=== PATIENT | female | born 1970 | race Caucasian/White ===

== ENCOUNTER 2020-03-20 04:52 | Day surgery (SDC) | payer OTHER ==
[2020-03-19 19:28] VITALS: BMI 28.5
--- OUTSIDE RECORDS SUMMARY | 2020-03-20 04:56 | XMS ---
:1970 Author Organization [facility] Care Team Providers Name Role Phone ED STAFF PHYSICIANDEB Unavailable Unavailable Rich JEREZ MD Majed Unavailable [phone] Rich JEREZ MD Majed Unavailable [phone] Rich JEREZ MD Majed Unavailable [phone] Berry, Sam Unavailable Unavailable Berry, Sam Unavailable Unavailable Berry, Sam Unavailable Unavailable Berry, Sam Unavailable Unavailable Berry, Sam Unavailable Unavailable Berry, Sam Unavailable Unavailable ED STAFF PHYSICIAN, STAFF Unavailable Unavailable Dino Demarco MD Unavailable Unavailable Dino Demarco MD Unavailable Unavailable Dino Demarco MD Unavailable Unavailable Dino Demarco MD Unavailable Unavailable Angel, Kori Unavailable Unavailable Angel, Kori Unavailable Unavailable Angel, Kori Unavailable Unavailable Angel, Kori Unavailable Unavailable BERRY, SAM Unavailable Unavailable Re-disclosure Warning The records that you are about to access may contain information from federally- assisted alcohol or drug abuse programs. If such information is present, then the following federally mandated warning applies: This information has been disclosed to you from records protected by federal confidentiality rules (42 CFR part 2). The federal rules prohibit you from making any further disclosure of this information unless further disclosure is expressly permitted by the written consent of the person to whom it pertains or as otherwise permitted by 42 CFR part 2. A general authorization for the release of medical or other information is NOT sufficient for this purpose. The Federal rules restrict any use of the information to criminally investigate or prosecute any alcohol or drug abuse patient.The records that you are about to access may contain highly sensitive health information, the redisclosure of which is protected by Article 27-F of the [facility] Public Health law. If you continue you may haveaccess to information: Regarding HIV / AIDS; Provided by facilities licensed or operated by the [facility] Office of Mental Health; or Provided by the [facility] Office for People With Developmental Disabilities. If such information is present, then the following [facility] mandated warning applies: This information has been disclosed to you from confidential records which are protected by state law. State law prohibits you from making any further disclosure of this information without the specific written consent of the person to whom it pertains, or as otherwise permitted by law. Any unauthorized further disclosure in violation of state law may result in a fine or mcc sentence or both. A general authorization for the release of medical or other information is NOT sufficient authorization for further disclosure. Encounters Encounter Providers Location Date Indications Data Source(s ) Attender: MD Medrano 03/14/2020 (MEDGE N) Sim Villanueva MD 12:00:00 AM [facility] Office Emergency Attender: DEB ED STAFF 08/15/2019 08:36:00 AM [facility] PHYSICIANAttender: STAFF ED [facility] - 08/15/2019 [facility] STAFF PHYSICIANAdmitter: 01:34:00 PM EST DEB STAFF PHYSICIAN Patient discharged. Outpatient Attender: SAM Hernandez 08/11/2019 [facility] KRISTIAdmitter: SAM 01:49:00 PM [facility] VALDESReferrer: SAM BERRY Attender: Sam [facility] 08/11/2019 KAYLENE SR ([facility] 01:49:00 PM [facility] 08/11/2019 Center) 01:49:00 PM EST Emergency H 10/20/2018 Pk 08:35:00 AM EDT Medical C enter Outpatient Attender: Dino Hernandez 09/27/2018 [facility] MDAdmitter: Dino 08:40:00 AM EDT Med ical [place] MDReferrer: Dino Demarco MD Attender: Kori [facility] 02/07/2011 NEXTGEN ([facility] 02:39:00 PM EDT - [facility] 02/07/2011 [place]) 02:39:00 PM EDT Medications Medication Brand Start Product Dose Route Administrative Pharmacy [facility] Indications Reaction Description Data Name Date Form Instructions Instructions Source(s) Amlodipine AMLODI 03/14/ TABLET 30 complet AMLOD IPINE (MEDGEN) 2.5 MG Oral PINE:3 2019 ed Elvira rn Tablet 16024 12:00: [place] AMLODIPINE: 00 AM r [id number] EDT Nephrology [facility] BLOOD complet BLOOD (MEDGEN) PRESSURE 2019 ed PRESSURE KIT Shantell thern KIT DEVICE: 12:00: DEVICE [place] 00 AM r EDT [facility] tramadol TRAMAD 02/21/ TABLET 14 complet TRAMADO L (MEDGEN) hydrochlori OL:835 2019 ed Elvira rn de 50 MG 603 12:00: [place] e Oral Tablet 00 AM r TRAMADOL:83 EDT [facility] Acetaminoph TYLENO 08/11/ TABLET 16 complet TYLE NOL WITH (MEDGEN) en 300 MG / L WITH 2018 ed CODEINE #3 [place] Codeine CODEIN 12:00: [place] Phosphate E 00 AM r 30 MG Oral #3:993 EST Nephrol ogy Tablet 837 [facility] [Tylenol with Codeine] TYLENOL WITH CODEINE #[id number] Lorazepam 1 LORaze 1 complet Richie nt MG Oral arabella 1 ed Pk Tablet mg Medical LORazepam 1 Tablet Center mg Tablet, , Ordered By: Noemí hughes By: Daily Lopes MDDirection P s: 1 tablet Tinsay oral every , six hours MDDire PRN anxiety ctions : 1 tablet oral every six hours PRN anxiet y Prednisone predni 2 complet [place]ome[place] t 20 MG Oral SONE ed Pk Tablet 20 mg Medical predniSONE Tablet Center 20 mg , Tablet, Orderradames Ordered By: ellen By: Deb Mujica, mary ellen MDDirection Guan[place], s: 2 tablet MDDire oral daily ctions : 2 tablet oral daily methylPREDN 1 complet [facility] ISolone 4 ed Pk mg Medical tablets,dos Center e pack, Ordered By: Nancy Kingsley s: 1 tablet oral daily Naproxen naprox 1 complet [facility] 500 MG Oral en 500 ed Stephen s Tablet mg Medical naproxen Tablet Center 500 mg , Tablet, Ordere Ordered By: d By: radames Beattyirection Phi s: 1 tablet , oral twice MDDire a day PRN ctions pain : 1 tablet oral twice a day PRN pain Diazepam 5 diazep 1 complet [place] t MG Oral am 5 ed Pk Tablet mg Medical diazepam 5 Tablet Center mg Tablet, , Ordered By: Noemí De Souza d By: Bessy Yip MDDirection e s: 1 tablet [place] oral three , times a day MDDire ctions : 1 tablet oral three times a day Cyclobenzap cyclob 1 complet Richie nt rine enzapr ed Pk hydrochlori ine 10 Medica l de 10 MG mg Center Oral Tablet Tablet cyclobenzap , rine 10 mg Ordere Tablet, d By: Ordered By: Gu[place] Ball MDDirection MDDire s: 1 tablet ctions oral three : 1 times a day tablet PRN oral pain-modera three te times a day PRN pain-m oderat e Naproxen naprox 1 complet [place] 500 MG Oral en 500 ed Stephen s Tablet mg Medical naproxen Tablet Center 500 mg , Tablet, Ordere Ordered By: d By: mary ellen Dashirection Garyo, s: 1 tablet MDDire oral twice ctions a day PRN : 1 pain tablet oral twice a day PRN pain Insurance Providers Payer name Policy type / Policy ID Covered Covered green party's Policy Plan Coverage type green party ID relationship to Dimas Information dimas UMR [id number] SP [id number] UMR [id number] 1 [id number] UMR [id number] SP [id number] O UMR O [id number] 01 [id number] O Problems, Conditions, and Diagnoses Code Display Name Description Problem Type Effective Data Sour ce(s) Dates N17.9 Acute kidney ACUTE KIDNEY Problem 03/14/2020 (MEDGEN) failure, FAILURE, 12:00:00 AM [facility] unspecified UNSPECIFIED EDT [facility] F17.210 Nicotine NICOTINE Diagnosis 08/15/2019 [facility] [place] dependence, DEPENDENCE, 08:36:[address] cigarettes, CIGARETTES, EST uncomplicated UNCOMPLICATED R07.89 Other chest pain OTHER CHEST PAIN Diagnosis 08/15/2019 [facility] int Pk 08:36:00 AM [facility] Cent[facility] r EST R06.00 Dyspnea, DYSPNEA, Diagnosis 08/15/2019 [facility] [place] unspecified UNSPECIFIED 08:36:[address] EST R10.11 Right upper RIGHT UPPER Diagnosis 08/11/2019 [facility] [place] [facility] quadrant pain QUADRANT PAIN 01:49:00 PM Medical Center EST M62.838 Other muscle spasm OTHER MUSCLE SPASM Diagnosis 9 [facility] Pk 08:35:00 AM Medical Cente r EDT M54.2 Cervicalgia CERVICALGIA Diagnosis 10/20/2018 [facility] 08:35:00 AM [facility] Cent[facility] r EDT Surgeries/Procedures Procedure Description Date Indications Data Source(s) Documentation of current 03/14/2020 (ME DGEN) [facility] medications (procedure) 12:00:00 AM EDT [facility] Nephrology [facility] Documentation of current 03/14/2020 (ME DGEN) [facility] medications (procedure) 12:00:00 AM EDT [facility] Documentation of current 03/14/2020 (ME DGEN) [facility] medications (procedure) 12:00:00 AM EDT [facility]ph[facility] OFFICE OUTPATIENT VISIT 03/14/2020 (MED GEN) [facility] 15 MINUTES 12:00:00 AM EDT [facility] COLLECTION VENOUS BLOOD 03/14/2020 (MED GEN) [facility] VENIPUNCTURE 12:00:00 AM EDT [facility] Results ID Date Data Source [id number] 03/08/2020 12:00:00 AM EDT (MEDGEN) Viki moffett [facility] Name Value Range Interpretation Description Data Source(s ) Supporting Code Document(s ) Hemoglobin A1c 5.9 % of Above high normal (MEDGEN ) in Blood total [facility] Hgb [facility] ID Date Data Source [id number] 03/08/2020 12:00:00 AM EDT (MEDGEN) [facility] Name Value Range Interpretation Description Data Source(s ) Supporting Code Document(s ) GLOMERULAR <1.0 Normal [facility] BASEMENT non-numeric [facility]ANE results) [facility] ANTIBODY (IGG) [facility] ID Date Data Source [id number] 03/08/2020 12:00:00 AM EDT [facility] Name Value Range Interpretation Description Data Source(s ) Supporting Code Document(s ) TSH 3.07 mIU/L Normal (applies to (MEDGEN) W/REFLEX non-numeric [facility] TO FT4 results) [facility] ID Date Data Source [id number] 03/08/2020 12:00:00 AM EDT ([facility]) [facility] Name Value Range Interpretation Description Data Source(s ) Supporting Code Document(s ) KAPPA 54.1 mg/L Above high normal [facility] LIGHT [place] CHAIN, [facility] FREE, [facility] SERUM LAMBDA 50.1 mg/L Above high normal ([facility]) LIGHT [place] CHAIN, [facility] FREE, [facility] SERUM KAPPA/KAY 1.08 Normal ([facility] DA LIGHT non-numeric [facility] CHAINS results) [facility] RATIO, SERUM ID Date Data Source [id number] 03/08/2020 12:00:00 AM EDT ([facility]) [facility] Name Value Range Interpretation Description Data Source(s ) Supporting Code Document(s ) DNA (DS) <1 Normal ([facility] ANTIBODY non-numeric [facility] results) [facility] ID Date Data Source [id number] 03/08/2020 12:00:00 AM EDT [facility] Name Value Range Interpretation Code Description Data Shantell rce(s) Supporting Document(s ) ANTONIO NEGATIVE Normal (applies to (MEDGEN) SCREEN, non-numeric [facility] IFA results) [facility] ID Date Data Source [id number] 03/08/2020 12:00:00 AM EDT ([facility]) [facility] Name Value Range Interpretation Description Data Source(s ) Supporting Code Document(s ) SHORTY * Normal (applies (MEDGEN) INTERPRETATION to non-numeric [facility] results) [facility] ID Date Data Source [id number] 03/08/2020 12:00:00 AM EDT (MEDGEN) Viki moffett [facility] Name Value Range Interpretation Description Data Sup porting Code Source(s) Document(s ) Color of DARK Normal (applies (MEDGEN) Peritoneal YELLOW to non-numeric [facility] dialysis fluid results) [facility] Appearance of CLOUDY Abnormal (MEDGEN) Abdomen (applies to [facility] non-numeric [facility] results) [facility] Specific 1.017 Normal (applies (MEDGEN) gravity of to non-numeric [facility] Pericardial results) [facility] fluid by [facility] Refractometry [facility] pH of Lower 5.5 Normal (applies (MEDGEN) respiratory to non-numeric [facility] specimen results) [facility] Glucose NEGATIVE Normal (applies (MEDGEN) [Mass/volume] to non-numeric [facility] in Urine results) [facility] collected for Nephrology unspecified PLL duration Bilirubin NEGATIVE Normal (applies (MEDGEN) [Presence] in to non-numeric [facility] Peritoneal results) [facility] fluid [facility] PLL Ketones NEGATIVE Normal (applies (MEDGEN) [Presence] in to non-numeric [facility] Blood by Tablet results) [facility] OCCULT BLOOD Abnormal (MEDGEN) (applies to [facility] non-numeric [facility] results) [facility] Protein Abnormal (MEDGEN) [Mass/volume] (applies to [facility] in Lower non-numeric [facility] respiratory results) [facility]ph[facility] specimen PLLC Leukocyte Abnormal (MEDGEN) esterase (applies to [facility] [Presence] in non-numeric [facility] Body fluid by results) [facility] Automated test PLLC strip Nitrite NEGATIVE Normal (applies (MEDGEN) [Presence] in to non-numeric [facility] Urine by Test results) [facility] strip [facility] RBC 40-60 Abnormal (MEDGEN) (applies to [facility] non-[facility] results) [facility] WBC 10-20 Abnormal (MEDGEN) (applies to [facility] non-numeric [facility] results) [facility] SQUAMOUS 6-10 Abnormal (MEDGEN) EPITHELIAL (applies to [facility] CELLS non-numeric [facility] results) [facility] Bacteria NONE SEEN Normal (applies (MEDGEN) [Presence] in to non-numeric [facility] Prostatic fluid results) [facility] by Light Nephrology microscopy PLL HYALINE CAST 0-1 Abnormal (MEDGEN) (applies to [facility] non-numeric [facility] results) [facility] ID Date Data Source [id number] 03/08/2020 12:00:00 AM EDT (MEDGEN) Viki moffett [facility] Name Value Range Interpretation Description Data Source(s ) Supporting Code Document(s ) Glucose 128 Above high normal (MEDGEN) [Mass/volume] mg/dL [place] in Urine [facility] collected for Nephrology unspecified PLL duration UREA NITROGEN 26 mg/dL Above high normal (MEDGEN) (BUN) [facility] Creatinine 1.50 Above high normal (MEDGEN) [Interpretation mg/dL [facility] ] in Urine [facility] eGFR NON-AFR. 40 Below low normal (MEDGEN) HAITIAN mL/min/1 [facility] .73m2 [facility] BUN/CREATININE 17 Normal (applies (MEDGEN) RATIO (calc) to non-numeric [facility] results) [facility] eGFR 46 Below low normal (MEDGEN) HAITIAN mL/min/1 [facility] .73m2 [facility] Sodium 140 Normal (applies (MEDGEN) [Moles/volume] mmol/L to non-numeric [facility] in Serum, results) [facility] Plasma or Blood [facility] Potassium 3.8 Normal (applies (MEDGEN) [Mass/volume] mmol/L to non-numeric [facility] in Blood results) [facility] Carbon dioxide 23 Normal (applies (MEDGEN) [VFr/PPres] in mmol/L to non-numeric [facility] Gas delivery results) [facility] system [facility] PLL Chloride 104 Normal (applies (MEDGEN) [Moles/volume] mmol/L to non-numeric [facility] in Serum, results) [facility] Plasma or Blood [facility] Calcium 9.5 Normal (applies (MEDGEN) [Moles/volume] mg/dL to non-numeric [facility] in Urine results) [facility] collected for Nephrology unspecified PLL duration PROTEIN, TOTAL 7.4 g/dL Normal (applies (MEDGEN) to non-numeric [facility] results) [facility] Microalbumin 4.3 g/dL Normal (applies (MEDGEN) [Mass/time] in to non-numeric [facility] Urine collected results) [facility] for unspecified Nephrology duration PLLC ALBUMIN/GLOBULI 1.4 Normal (applies (MEDGEN) N RATIO (calc) to non-numeric [facility] results) [facility] Globulin 3.1 g/dL Normal (applies (MEDGEN) [Mass/time] in (calc) to non-numeric [facility] 24 hour Urine results) [facility] Alkaline 70 U/L Normal (applies (MEDGEN) phosphatase to non-numeric [facility] [Enzymatic results) [facility] activity/volume Nephrology ] in Serum, PLLC Plasma or Blood BILIRUBIN, 0.5 Normal (applies (MEDGEN) TOTAL mg/dL to non-numeric [facility] results) [facility] AST 32 U/L Normal (applies (MEDGEN) to non-numeric [facility] results) [facility] ALT 48 U/L Above high normal (MEDGEN) [facility] ID Date Data Source [id number] 03/08/2020 12:00:00 AM EDT (MEDGEN) [facility] Name Value Range Interpretation Description Data Source(s ) Supporting Code Document(s ) URIC ACID 7.9 mg/dL Above high normal (MEDGEN) [facility] ID Date Data Source [id number] 03/08/2020 12:00:00 AM EDT (MEDGEN) [facility] Name Value Range Interpretation Description Data Source(s ) Supporting Code Document(s ) PHOSPHATE ( 3.8 mg/dL Normal (applies (MEDGEN) PHOSPHORUS) to non-numeric [facility] results) [facility] ID Date Data Source [id number] 03/08/2020 12:00:00 AM EDT (MEDGEN) [facility] Name Value Range Interpretation Description Data Source(s ) Supporting Code Document(s ) Magnesium 1.7 Normal (applies (MEDGEN) [Mass/volume] mg/dL to non-numeric [facility] in Urine results) [facility] collected for Nephrology unspecified PLLC duration ID Date Data Source [id number] 03/08/2020 12:00:00 AM EDT (MEDGEN) [facility] Name Value Range Interpretation Code Description Data Shantell rce(s) Supporting Document(s ) P ANCA >1:640 Above high normal (MEDGEN) TITER [facility] ID Date Data Source [id number] 03/08/2020 12:00:00 AM EDT (MEDGEN) [facility] Name Value Range Interpretation Description Data Sup porting Code Source(s) Document(s ) MYELOPEROXIDASE 367.0 Above high (MEDGEN) ANTIBODY AI normal [facility] ANCA SCREEN P-ANCA Abnormal (MEDGEN) POS (applies to [facility] non-numeric [facility] results) [facility] PROTEINASE-3 <1.0 Normal (applies (MEDGEN) ANTIBODY to non-numeric [facility] results) [facility] ID Date Data Source [id number] 03/08/2020 12:00:00 AM EDT (MEDGEN) [facility] Name Value Range Interpretation Description Data Source(s ) Supporting Code Document(s ) HEPATITIS A NON-REACT Normal (applies (MEDGEN) IGM EULA to non-numeric [facility] results) [facility] HEPATITIS B NON-REACT Normal (applies (MEDGEN) CORE ANTIBODY EULA to non-numeric [facility] (IGM) results) [facility] HEPATITIS B NON-REACT Normal (applies (MEDGEN) SURFACE EULA to non-numeric [facility] ANTIGEN results) [facility] HEPATITIS C NON-REACT Normal (applies (MEDGEN) ANTIBODY EULA to non-numeric [facility] results) [facility] SIGNAL TO 0.02 Normal (applies (MEDGEN) CUT-OFF to non-numeric [facility] results) [facility] ID Date Data Source [id number] 03/08/2020 12:00:00 AM EDT (MEDGEN) [facility] Name Value Range Interpretation Description Data Sup porting Code Source(s) Document(s ) CREATININE, RANDOM 142 Normal (applies (MEDG EN) URINE mg/dL to non-numeric [facility] results) [facility] PROTEIN/CREATININE 0.894 Above high (MEDGEN) RATIO mg/mg normal [facility] PROTEIN/CREATININE 894 Above high (MEDGEN) RATIO mg/g normal [facility] PROTEIN, TOTAL, RANDOM 127 Above high (MEDGE N) UR mg/dL normal [facility] Microalbumin 59 % Normal (applies (MEDGEN) [Mass/time] in Urine to non-numeric [place] collected for results) [facility] unspecified duration Nephrolog y PLL [id number] 0 % Normal (applies (MEDGE N) to non-numeric [facility] results) [facility] [id number] 11 % Normal (applies (MEDGE N) to non-numeric [facility] results) [facility] GAMMA GLOBULINS 16 % Normal (applies (MEDGEN) to non-numeric [facility] results) [facility] BETA GLOBULINS 14 % Normal (applies (MEDGEN) to non-numeric [facility] results) [facility] ABNORMAL PROTEIN BAND 2.2 Above high (MEDGEN ) 1 mg/dL normal [facility] Immunoelectrophoresis Normal (applies (M EDGEN) for 24 hour Urine to non-numeric [place] results) [facility] ID Date Data Source [id number] 03/08/2020 12:00:00 AM EDT (MEDGEN) [place] [facility] Name Value Range Interpretation Description Data Source(s ) Supporting Code Document(s ) ALBUMIN, 47.3 Normal (applies to (MEDGEN) URINE mg/dL non-numeric [facility] results) [facility] CREATININE 142 mg/dL Normal (applies to (MEDGEN) , RANDOM non-numeric [facility] URINE results) [facility] ALBUMIN/CR 333 Above high normal (MEDGEN) EATININE mcg/mg [facility] RATIO, creat [facility] URINE ID Date Data Source [id number] 03/08/2020 12:00:00 AM EDT (MEDGEN) [place] [facility] Name Value Range Interpretation Description Data Sup porting Code Source(s) Document(s ) PROTEIN, TOTAL 7.4 Normal (applies (MEDGEN) g/dL to non-numeric [facility] results) [facility] Alpha 1 globulin 0.3 Normal (applies (MEDGEN ) [Mass/volume] by g/dL to non-numeric [facility] Electrophoresis in results) [facility] Urine collected for Nephrology unspecified duration PLLC Microalbumin 4.0 Normal (applies (MEDGEN) [Mass/time] in Urine g/dL to non-numeric [place] collected for results) [facility] unspecified duration Nephrolog y PLLC Beta 1 globulin 0.4 Normal (applies (MEDGEN) [Mass/volume] by g/dL to non-numeric [facility] Electrophoresis in results) [facility] Urine collected for Nephrology unspecified duration PLLC Alpha 2 globulin 1.0 Above high (MEDGEN) [Mass/volume] by g/dL normal [facility] Electrophoresis in [facility] Urine collected for Nephrology unspecified duration PLLC Gamma globulin 1.2 Normal (applies (MEDGEN) [Mass/volume] by g/dL to non-numeric [facility] Electrophoresis in results) [facility] Urine collected for Nephrology unspecified duration PLLC Beta 2 globulin 0.4 Normal (applies (MEDGEN) [Mass/volume] in g/dL to non-numeric [facility] Cerebral spinal fluid results) [facility] by Electrophoresis Nephrology [facility] Immunoelectrophoresis Normal (applies (Estelita CARLISLE) for 24 hour Urine to non-numeric [place] results) [facility] ID Date Data Source [id number] 02/27/2020 05:12:00 AM EDT [facility] Name Value Range Interpretation Description Data Sup porting Code Source(s) Document(s ) SARS [facility] coronavirus 2 RNA This lab was ordered by [facility] and reported by [facility]. ID Date Data Source [id number] 12/07/2019 12:00:00 AM EDT (MEDGEN) [place] [facility] [facility] Name Value Range Interpretation Code Description Data Shantell rce(s) Supporting Document(s ) SARS CoV NEGATIVE Normal (applies to (MEDGEN) 2 AB IGG non-numeric [facility] results) [facility] ID Date Data Source Coagulation 08/15/2019 11:45:00 AM [facility] Rout.[id number] EST Name Value Range Interpretation Code Description Data Shantell rce(s) Supporting Document(s ) UNK < 500 <content [facility] styleCode="Bold"> Medical Cent er D-Dimer </content>359 ngFEU<content styleCode="Italic s"> (< 500 ngFEU)</content> ID Date Data Source CardiacMarkers.[id number] 08/15/2019 11:45:00 AM EST [facility] -0500 Name Value Range Interpretation Description Data Sup porting Code Source(s) Document(s ) Troponin < 0.034 <content [facility] I.cardiac styleCode="Bold Pk [Mass/volume ">Troponin I Medical ] in Serum </content>< Center or Plasma 0.012 NG/ML<content styleCode="Ital ics"> (< 0.034 NG/ML)</content > ID Date Data Source Liver 08/15/2019 09:32:00 AM EST [facility] Profile.[id number] Name Value Range Interpretation Description Data Sup porting Code Source(s) Document(s ) Aspartate 14-36 <content [facility] aminotransferase styleCode="Bold"> [place] hs [Enzymatic Aspartate Medical activity/volume] Aminotransferase Center in Serum or Plasma (AST) </content>29 IU/L<content styleCode="Italic s"> (14-36 IU/L)</content> Alanine 7-30 Above high <content [facility] aminotransferase normal styleCode="Bold"> [place] hs [Enzymatic Alanine Medical activity/volume] Aminotransferase Center in Serum or Plasma (ALT) </content>33 IU/L H<content styleCode="Italic s"> (7-30 IU/L)</content> Bilirubin.total 0.2-1.3 <content [facility] [Mass/volume] in styleCode="Bold"> [place] hs Serum or Plasma Bilirubin Total Medical </content>0.2 Center MG/DL<content styleCode="Italic s"> (0.2-1.3 MG/DL)</content> Alkaline 38-126 <content [facility] phosphatase styleCode="Bold"> Pk [Enzymatic Alkaline Medical activity/volume] Phosphatase (ALP) Cente r in Serum or Plasma </content>49 IU/L<content styleCode="Italic s"> (38-126 IU/L)</content> Albumin 3.5-5.0 <content [facility] [Mass/volume] in styleCode="Bold"> [place] hs Serum or Plasma Albumin Medical </content>3.6 Center G/DL<content styleCode="Italic s"> (3.5-5.0 G/DL)</content> ID Date Data Source HematologyRou.[id number] 08/15/2019 09:32:00 AM [facility]EN [facility] 0500 Name Value Range Interpretation Description Data Sup porting Code Source(s) Document(s ) Leukocytes 4.4-11.0 <content [facility] [#/volume] in styleCode="Bold Pk Blood by ">White Blood Medical Automated count Cell Count Center </content>5.72 KCUMM<content styleCode="Ital ics"> (4.4-11.0 KCUMM)</content > Erythrocytes 4.0-5.1 <content [facility] [#/volume] in styleCode="Bold Pk Blood by ">Red Blood Medical Automated count Cell Count Center </content>4.18 MCUMM<content styleCode="Ital ics"> (4.0-5.1 MCUMM)</content > Hemoglobin 12.3-16. Below low normal <content [facility] [Mass/volume] in 0 styleCode="Bold Pk Blood ">Hemoglobin Medical </content>11.9 Center G/DL L<content styleCode="Ital ics"> (12.3-16.0 G/DL)</content> Hematocrit 36.0-46. <content [facility] [Volume 0 styleCode="Bold [facility] Fraction] of ">Hematocrit Medical Blood by </content>36.8 Center Automated count %<content styleCode="Ital ics"> (36.0-46.0 %)</content> Erythrocyte 11.5-14. <content [facility] distribution 5 styleCode="Bold Pk width [Ratio] by ">Red Cell Medical Automated count Distribution Center Width </content>14.3 %<content styleCode="Ital ics"> (11.5-14.5 %)</content> Erythrocyte mean 26.0-34. <content [facility] corpuscular 0 styleCode="Bold Pk hemoglobin ">Mean Medical [Entitic mass] Corposcular Center by Automated Hemoglobin count </content>28.5 PG<content styleCode="Ital ics"> (26.0-34.0 PG)</content> Erythrocyte mean 32.0-37. <content [facility] corpuscular 0 styleCode="Bold Pk hemoglobin ">Mean Corpus. Medical concentration Hgb Center [Mass/volume] by Concentration Automated count (MCHC) </content>32.3 G/DL<content styleCode="Ital ics"> (32.0-37.0 G/DL)</content> Platelets 130-400 <content [facility] [#/volume] in styleCode="Bold Pk Blood by ">Platelet Medical Automated count Count Center </content>254 KCUMM<content styleCode="Ital ics"> (130-400 KCUMM)</content > Erythrocyte mean 80.0-100 <content [facility] corpuscular .0 styleCode="Bold Pk volume [Entitic ">Mean Medical volume] by Corpuscular Center Automated count Volume </content>88.0 FL<content styleCode="Ital ics"> (80.0-100.0 FL)</content> Platelet mean 8.0-11.0 <content [facility] volume [Entitic styleCode="Bold Pk volume] in Blood ">Mean Platelet Medical by Automated Volume Center count </content>10.5 FL<content styleCode="Ital ics"> (8.0-11.0 FL)</content> UNK 0.0 <content [facility] styleCode="Bold Pk ">Nucleated Red Medical Blood Cell Center Count </content>0.00 KCUMM<content styleCode="Ital ics"> (0.0 KCUMM)</content > UNK 0 <content [facility] styleCode="Bold Pk ">Nucleated Red Medical Blood Cell Center </content>0.0 /100<content styleCode="Ital ics"> (0 /100)</content> ID Date Data Source GFR(Creatinine).[id number] 08/15/2019 09:32:00 AM RAVEN [facility] 0-0500 Name Value Range Interpretation Code Description Data Shantell rce(s) Supporting Document(s ) UNK > 60 <content [facility] styleCode="Bold"> Medical Cent er EGFR </content>80 GFR<content styleCode="Italic s"> (> 60 GFR)</content> ID Date Data Source CHMROUTINECCDA.[id number] 08/15/2019 09:32:00 AM RAVEN [facility] -0500 Name Value Range Interpretation Description Data Sup porting Code Source(s) Document(s ) UNK 2.3-3.5 <content [facility] styleCode="Bold Medical ">Globulin Center </content>3.1 G/DL<content styleCode="Ital ics"> (2.3-3.5 G/DL)</content> Protein 6.3-8.2 <content [facility] Kp [Mass/volum styleCode="Bold Medical e] in Serum ">Total Protein Center or Plasma </content>6.7 G/DL<content styleCode="Ital ics"> (6.3-8.2 G/DL)</content> UNK >= 1.0 <content [facility] styleCode="Bold Medical ">AG Ratio Center </content>1.2 <content styleCode="Ital ics"> (>= 1.0 )</content> ID Date Data Source [facility].[id number] 08/15/2019 09:32:00 AM EST [facility] Name Value Range Interpretation Description Data Sup porting Code Source(s) Document(s ) Sodium 137-145 <content [facility] [Moles/volume] in styleCode="Bold"> Dino phs Serum or Plasma Sodium Medical </content>138 Center MEQ/L<content styleCode="Italic s"> (137-145 MEQ/L)</content> Creatinine 0.5-1.3 <content [facility] [Mass/volume] in styleCode="Bold"> [place] hs Serum or Plasma Creatinine Medical </content>0.8 Center MG/DL<content styleCode="Italic s"> (0.5-1.3 MG/DL)</content> Carbon dioxide, 22-30 <content [facility] total styleCode="Bold"> Pk [Moles/volume] in Carbon Dioxide Medical Serum or Plasma </content>25 Center MEQ/L<content styleCode="Italic s"> (22-30 MEQ/L)</content> Potassium 3.5-5.3 <content [facility] [Moles/volume] in styleCode="Bold"> Dino phs Serum or Plasma Potassium Medical </content>4.2 Center MEQ/L<content styleCode="Italic s"> (3.5-5.3 MEQ/L)</content> UNK 7-17 Above high <content [facility] normal styleCode="Bold"> Pk BUN </content>19 Medical MG/DL H<content Center styleCode="Italic s"> (7-17 MG/DL)</content> Chloride 98-107 <content [facility] [Moles/volume] in styleCode="Bold"> Dino phs Serum or Plasma Chloride Medical </content>106 Center MEQ/L<content styleCode="Italic s"> (98-107 MEQ/L)</content> Alanine 7-30 Above high <content [facility] aminotransferase normal styleCode="Bold"> [place] hs [Enzymatic Alanine Medical activity/volume] Aminotransferase Center in Serum or Plasma (ALT) </content>33 IU/L H<content styleCode="Italic s"> (7-30 IU/L)</content> Glucose 74-106 <content [facility] [Mass/volume] in styleCode="Bold"> [place] hs Serum or Plasma Glucose Medical </content>99 Center MG/DL<content styleCode="Italic s"> (74-106 MG/DL)</content> UNK > 60 <content [facility] styleCode="Bold"> Pk EGFR </content>80 Medical GFR<content Center styleCode="Italic s"> (> 60 GFR)</content> Aspartate 14-36 <content [facility] aminotransferase styleCode="Bold"> [place] hs [Enzymatic Aspartate Medical activity/volume] Aminotransferase Center in Serum or Plasma (AST) </content>29 IU/L<content styleCode="Italic s"> (14-36 IU/L)</content> Calcium 8.4-10. <content [facility] [Mass/volume] in 2 styleCode="Bold"> [place] hs Serum or Plasma Calcium Medical </content>9.6 Center MG/DL<content styleCode="Italic s"> (8.4-10.2 MG/DL)</content> Bilirubin.total 0.2-1.3 <content [facility] [Mass/volume] in styleCode="Bold"> [place] hs Serum or Plasma Bilirubin Total Medical </content>0.2 Center MG/DL<content styleCode="Italic s"> (0.2-1.3 MG/DL)</content> Alkaline 38-126 <content [facility] phosphatase styleCode="Bold"> Pk [Enzymatic Alkaline Medical activity/volume] Phosphatase (ALP) Cente r in Serum or Plasma </content>49 IU/L<content styleCode="Italic s"> (38-126 IU/L)</content> Albumin 3.5-5.0 <content [facility] [Mass/volume] in styleCode="Bold"> [place] hs Serum or Plasma Albumin Medical </content>3.6 Center G/DL<content styleCode="Italic s"> (3.5-5.0 G/DL)</content> ID Date Data Source [id number] 10/29/2018 12:00:00 AM EDT (MEDGEN) [facility] Name Value Range Interpretation Code Description Data Shantell rce(s) Supporting Document(s ) CULTURE,UR FINAL Normal (applies to (MEDGEN) INE,ROUTIN non-numeric [facility] E results) [facility] CULTURE,UR Normal (applies to (MEDGEN) INE,ROUTIN non-numeric [facility] E results) [facility] Date Data Source [id number] 10/29/2018 12:00:00 AM [facility] Name Value Range Interpretation Description Data Sup porting Code Source(s) Document(s ) CTRACHOMATIS Normal (applies (MEDGEN) RNA,TMA,UROG to non-numeric [facility] results) [facility] Repair of TEST NOT Normal (applies (MEDGEN) tongue PERFORMED to non-numeric [facility] (procedure) results) [facility] ID Date Data Source [id number] 10/29/2018 12:00:00 AM [facility] Name Value Range Interpretation Description Data Sup porting Code Source(s) Document(s ) Appearance of Cloudy Abnormal (MEDGEN) Abdomen (applies to [facility] non-numeric [facility]) [facility] Color of Yellow Normal (applies (MEDGEN) Peritoneal to non-numeric [facility] dialysis fluid results) [facility] Specific 1.015 Normal (applies (MEDGEN) gravity of to non-numeric [facility] Pericardial results) [facility] fluid by [facility] pH of Lower 6.5 Normal (applies (MEDGEN) respiratory to non-numeric [facility] specimen results) [facility] Bilirubin Negative Normal (applies (MEDGEN) [Presence] in to non-numeric [facility] Peritoneal results) [facility] Glucose Negative Normal (applies (MEDGEN) [Mass/volume] to non-numeric [facility] in Urine results) [facility] collected for [facility] duration Ketones Negative Normal (applies (MEDGEN) [Presence] in to non-numeric [facility] Blood by Tablet results) [facility] OCCULT BLOOD Abnormal (MEDGEN) (applies to [facility] non-numeric [facility] results) [facility] Nitrite Negative Normal (applies (MEDGEN) [Presence] in to non-numeric [facility] Urine by Test results) [facility] strip [facility] Protein Abnormal (MEDGEN) [Mass/volume] (applies to [facility] in Lower non-numeric [facility] respiratory results) [facility] specimen [facility] Leukocyte Abnormal (MEDGEN) esterase (applies to [facility] [Presence] in non-numeric [facility] Body fluid by results) [facility] Automated test [facility] strip WBC 40-60 Above high (MEDGEN) normal [facility] RBC > or =60 Above high (MEDGEN) normal [facility] SQUAMOUS 0-5 Normal (applies (MEDGEN) EPITHELIAL to non-numeric [facility] CELLS results) [facility] Bacteria None Seen Normal (applies (MEDGEN) [Presence] in to non-numeric [facility] Prostatic fluid results) [facility] by Light [facility] microscopy [facility] HYALINE CAST None Seen Normal (applies (MEDGEN) to non-numeric [facility] results) [facility] ID Date Data Source CardiacMarkers 07/16/2018 12:10:00 PM EST [facility] Name Value Range Interpretation Code Description Data Shantell rce(s) Supporting Document(s ) UNK 0-0.034 <content [facility] styleCode="Bold" Medical Cente r >Troponin 4HR </content>< 0.012 NG/ML<content styleCode="Itali cs"> (0-0.034 NG/ML)</content> ID Date Data Source Coagulation Rout 07/16/2018 11:20:00 AM [facility] Name Value Range Interpretation Code Description Data Shantell rce(s) Supporting Document(s ) UNK < 500 <content [facility] styleCode="Bold"> Medical Cent er D-Dimer </content>237 ngFEU<content styleCode="Italic s"> (< 500 ngFEU)</content> ID Date Data Source BloodBank 07/16/2018 08:25:00 AM [facility] Name Value Range Interpretation Code Description Data Shantell rce(s) Supporting Document(s ) UNK NEGATIVE <content [facility] styleCode="Bold" Medical Cente r >Antibody Screen </content>NEGATI VE <content styleCode="Itali cs"> (NEGATIVE )</content> UNK <content [facility] styleCode="Bold" Medical Cente r >Blood Type </content>GROUP A (Reference Range: not available)
UNK <content [facility] styleCode="Bold" Medical Cente r >RH Type </content>POSITI VE (Reference Range: not available)
ID Date Data Source Urinalysis 07/16/2018 08:20:00 AM [facility] Name Value Range Interpretation Description Data Sup porting Code Source(s) Document(s ) Color of Urine YELLOW <content [facility] styleCode="Jordon Pk d">Color, Medical Urine Center </content>YELL OW <content styleCode="Ana lics"> (YELLOW )</content> Glucose NEGATIVE <content [facility] [Mass/volume] styleCode="Jordon Pk in Urine by d">Urine Medical Test strip Glucose Center </content>NEGA TIVE MG/DL<content styleCode="Ana lics"> (NEGATIVE MG/DL)</conten t> UNK NEGATIVE <content [facility] styleCode="Jordon Pk d">Urine Medical Bilirubin Center </content>NEGA TIVE <content styleCode="Ana lics"> (NEGATIVE )</content> UNK CLEAR <content [facility] styleCode="Jordon Pk d">Urine Medical Clarity Center </content>LEONARDO R <content styleCode="Ana lics"> (CLEAR )</content> Specific 1.015-1.02 <content [facility] gravity of 5 styleCode="Jordon Pk Urine by Test d">Urine Medical strip Specific Center [place] </content>1.02 5 NM<content styleCode="Ana lics"> (1.015-1.025 NM)</content> pH of Urine by 4.5-8.0 <content [facility] Test strip styleCode="Jordon Pk d">Urine pH Medical </content>6.0 Center NM<content styleCode="Ana lics"> (4.5-8.0 NM)</content> Ketones NEGATIVE <content [facility] [Mass/volume] styleCode="Jordon Pk in Urine by d">Urine Medical Test strip Ketone Center </content>NEGA TIVE MG/DL<content styleCode="Ana lics"> (NEGATIVE MG/DL)</conten t> Protein NEGATIVE <content [facility] [Mass/volume] styleCode="Jordon Pk in Urine by d">Urine Medical Test strip Protein Center </content>30 MG/DL<content styleCode="Ana lics"> (NEGATIVE MG/DL)</conten t> Hemoglobin NEGATIVE <content [facility] [Presence] in styleCode="Jordon Mitchells Urine by Test d">Urine Blood Medical strip </content>LARG Center E <content styleCode="Ana lics"> (NEGATIVE )</content> Urobilinogen 0.2-1.0 <content [facility] [Units/volume] styleCode="Jordon Pk in Urine by d">Urine Medical Test strip Urobilinogen Center </content>0.2 MG/DL<content styleCode="Ana lics"> (0.2-1.0 MG/DL)</conten t> UNK 0-3 <content [facility] styleCode="Jordon Pk d">Urine Red Medical Blood Cell Center </content>100- 200 HPF<content styleCode="Ana lics"> (0-3 HPF)</content> Leukocyte NEGATIVE <content [facility] esterase styleCode="Jordon [place] [Presence] in d">Urine Medical Urine by Test Leukocyte Center strip </content>TRAC E <content styleCode="Ana lics"> (NEGATIVE )</content> Nitrite NEGATIVE <content [Presence] in styleCode="Jordon [place] Urine by Test d">Urine Medical strip Nitrite Center </content>NEGA TIVE <content styleCode="Ana lics"> (NEGATIVE )</content> UNK NEGATIVE <content [facility] styleCode="Jordon Mitchells d">Urine Medical Bacteria Center </content>FEW HPF<content styleCode="Ana lics"> (NEGATIVE HPF)</content> UNK <content [facility] styleCode="Jordon Mitchells d">Epithelial Medical Cell Center </content>2-5 LPF (Reference Range: not available)<br/ > UNK 0-3 <content [facility] styleCode="Jordon Mitchells d">Urine White Medical Blood Cell Center </content>3-5 HPF<content styleCode="Ana lics"> (0-3 HPF)</content> ID Date Data Source Microbiology 07/16/2018 08:20:00 AM EST [facility] Name Value Range Interpretation Code Description Data Shantell rce(s) Supporting Document(s ) UNK <item><content [facility] styleCode="Bold"> Medical Cent er Culture Report </content>
<t able><tbody><tr>< td>Specimen Number:</td><td>[id number]</td></tr ><tr><td>Sample Collection Date/Time: </td><td> 9 8:20 AM</td></tr><tr>< td>Specimen Source:</td><td>U RINE</td></tr><tr ><td>Urine Culture:</td><td> Collection Plate Date: 07/16/2018 08:34 </td></tr><tr><td >Culture Status:</td><td>P reliminary </td></tr><tr><td >Culture Report:</td><td>C ulture in progress </td></tr></tbody ></table></item> UNK <item><content [facility] styleCode="Bold"> Medical [facility] er Culture Status </content>
<t able><tbody><tr>< td>Specimen Number:</td><td>[id number]</td></tr ><tr><td>Sample Collection Date/Time: </td><td> 9 8:20 AM</td></tr><tr>< td>Specimen Source:</td><td>U RINE</td></tr><tr ><td>Culture Status:</td><td>P reliminary </td></tr><tr><td >Culture Report:</td><td>C ulture in progress </td></tr><tr><td >Urine Culture:</td><td> Collection Plate Date: 07/16/2018 08:34 </td></tr></tbody ></table></item> ID Date Data Source LIPID 07/16/2018 08:20:00 AM EST [facility] Name Value Range Interpretation Description Data Sup porting Code Source(s) Document(s ) Triglyceride < 150 <content [facility] [Mass/volume] in styleCode="[facility] Serum or Plasma d">Triglycerid Medical es Center </content>118 MG/DL<content styleCode="Ana lics"> (< 150 MG/DL)</conten t> UNK > 60 <content [facility] styleCode="Jordon [facility] d">HDL- Medical Cholesterol Center </content>63 MG/DL<content styleCode="Ana lics"> (> 60 MG/DL)</conten t> Cholesterol -<200 Above high normal <content [facility] [Mass/volume] in styleCode="Jordon Mitchells Serum or Plasma d">Cholesterol Medical </content>291 Center MG/DL H<content styleCode="Ana lics"> (-<200 MG/DL)</conten t> UNK < 100 Above high normal <content [facility] styleCode="Jordon Pk d">LDL-Cholest [facility] </content>204 MG/DL H<content styleCode="Ana lics"> (< 100 MG/DL)</conten t> ID Date Data Source HematologyRou 07/16/2018 08:20:00 AM EST [facility] Name Value Range Interpretation Description Data Sup porting Code Source(s) Document(s ) Leukocytes 4.4-11.0 <content [facility] [#/volume] in styleCode="Bold Pk Blood by ">White Blood Medical Automated count Cell Count Center </content>6.29 KCUMM<content styleCode="Ital ics"> (4.4-11.0 KCUMM)</content > Hemoglobin 12.3-16. <content [facility] [Mass/volume] in 0 styleCode="Bold Pk Blood ">Hemoglobin Medical </content>13.0 Center G/DL<content styleCode="Ital ics"> (12.3-16.0 G/DL)</content> Hematocrit 36.0-46. <content [facility] [Volume 0 styleCode="Bold Pk Fraction] of ">Hematocrit Medical Blood by </content>40.7 Center Automated count %<content styleCode="Ital ics"> (36.0-46.0 %)</content> Erythrocyte mean 80.0-100 <content [facility] corpuscular .0 styleCode="Bold Pk volume [Entitic ">Mean Medical volume] by Corpuscular Center Automated count Volume </content>87.7 FL<content styleCode="Ital ics"> (80.0-100.0 FL)</content> Erythrocytes 4.0-5.1 <content [facility] [#/volume] in styleCode="Bold Pk Blood by ">Red Blood Medical Automated count Cell Count Center </content>4.64 MCUMM<content styleCode="Ital ics"> (4.0-5.1 MCUMM)</content > Erythrocyte mean 26.0-34. <content [facility] corpuscular 0 styleCode="Bold Pk hemoglobin ">Mean Medical [Entitic mass] Corposcular Center by Automated Hemoglobin count </content>28.0 PG<content styleCode="Ital ics"> (26.0-34.0 PG)</content> Platelet mean 8.0-11.0 <content [facility] volume [Entitic styleCode="Bold Pk volume] in Blood ">Mean Platelet Medical by Automated Volume Center count </content>10.5 FL<content styleCode="Ital ics"> (8.0-11.0 FL)</content> Platelets 130-400 <content [facility] [#/volume] in styleCode="Bold Pk Blood by ">Platelet Medical Automated count Count Center </content>336 KCUMM<content styleCode="Ital ics"> (130-400 KCUMM)</content > Erythrocyte 11.5-14. Above high <content [facility] distribution 5 normal styleCode="Bold Pk width [Ratio] by ">Red Cell Medical Automated count Distribution Center Width </content>14.6 % H<content styleCode="Ital ics"> (11.5-14.5 %)</content> Erythrocyte mean 32.0-37. Below low normal <content [facility] corpuscular 0 styleCode="Bold Pk hemoglobin ">Mean Corpus. Medical concentration Hgb Center [Mass/volume] by Concentration Automated count (MCHC) </content>31.9 G/DL L<content styleCode="Ital ics"> (32.0-37.0 G/DL)</content> UNK 0 <content [facility] styleCode="Bold Pk ">Nucleated Red Medical Blood Cell Center </content>0.0 /100<content styleCode="Ital ics"> (0 /100)</content> UNK 0.0 <content [facility] styleCode="Bold Pk ">Nucleated Red Medical Blood Cell Center Count </content>0.00 KCUMM<content styleCode="Ital ics"> (0.0 KCUMM)</content > ID Date Data Source GFR(Creatinine) 07/16/2018 08:20:00 AM [facility] Name Value Range Interpretation Code Description Data Shantell rce(s) Supporting Document(s ) UNK > 60 <content [facility] styleCode="Bold"> Medical Cent er EGFR </content>70 GFR<content styleCode="Italic s"> (> 60 GFR)</content> ID Date Data Source CHMROUTINECCDA 07/16/2018 08:20:00 AM [facility] Name Value Range Interpretation Description Data Sup porting Code Source(s) Document(s ) Natriuretic < 125 <content [facility] peptide.B styleCode="Jordon Pk prohormone d">NT Pro BNP Medical N-Terminal </content>104 Center [Mass/volume] PG/ML<content in Serum or styleCode="Ana Plasma lics"> (< 125 PG/ML)</conten t> ID Date Data Source BMP 07/16/2018 08:20:00 AM [facility] Name Value Range Interpretation Description Data Sup porting Code Source(s) Document(s ) Sodium 137-145 <content [facility] [Moles/volume] styleCode="Jordon Pk in Serum or d">Sodium Medical Plasma </content>143 Center MEQ/L<content styleCode="Ana lics"> (137-145 MEQ/L)</conten t> Potassium 3.5-5.3 <content [facility] [Moles/volume] styleCode="Jordon Pk in Serum or d">Potassium Medical Plasma </content>4.0 Center MEQ/L<content styleCode="Ana lics"> (3.5-5.3 MEQ/L)</conten t> Carbon 22-30 <content [facility] dioxide, total styleCode="Jordon Pk [Moles/volume] d">Carbon Medical in Serum or Dioxide Center Plasma </content>30 MEQ/L<content styleCode="Ana lics"> (22-30 MEQ/L)</conten t> Chloride 98-107 <content [facility] [Moles/volume] styleCode="Jordon Pk in Serum or d">Chloride Medical Plasma </content>104 Center MEQ/L<content styleCode="Ana lics"> (98-107 MEQ/L)</conten t> UNK 7-17 Above high normal <content [facility] styleCode="Jordon Pk d">BUN Medical </content>19 Center MG/DL H<content styleCode="Ana lics"> (7-17 MG/DL)</conten t> Calcium 8.4-10.2 <content [facility] [Mass/volume] styleCode="Jordon Pk in Serum or d">Calcium Medical Plasma </content>9.6 Center MG/DL<content styleCode="Ana lics"> (8.4-10.2 MG/DL)</conten t> Glucose 74-106 <content [facility] [Mass/volume] styleCode="Jordon Pk in Serum or d">Glucose Medical Plasma </content>102 Center MG/DL<content styleCode="Ana lics"> (74-106 MG/DL)</conten t> Creatinine 0.5-1.3 <content Saint [Mass/volume] styleCode="Jordon Pk in Serum or d">Creatinine Medical Plasma </content>0.9 Center MG/DL<content styleCode="Ana lics"> (0.5-1.3 MG/DL)</conten t> UNK > 60 <content [facility] styleCode="Jordon Pk d">EGFR Medical </content>70 Center GFR<content styleCode="Ana lics"> (> 60 GFR)</content> ID Date Data Source [id number] 04/24/2017 12:00:00 AM EDT (MEDGEN) [facility] Name Value Range Interpretation Code Description Data Shantell rce(s) Supporting Document(s ) CULTURE,UR FINAL Normal (applies to (MEDGEN) INE,ROUTIN non-numeric [facility] E results) [facility] CULTURE,UR Normal (applies to (MEDGEN) INE,ROUTIN non-numeric [facility] E results) [facility] ID Date Data Source [id number] 04/24/2017 12:00:00 AM EDT (MEDGEN) [facility] betina [facility] Name Value Range Interpretation Code Description Data Shantell rce(s) Supporting Document(s ) HCG,QL,UR Negative Normal (applies to (MEDGEN) INE non-numeric [facility] results) [facility] ID Date Data Source [id number] 04/24/2017 12:00:00 AM EDT (MEDGEN) Viki moffett [facility] Name Value Range Interpretation Description Data Sup porting Code Source(s) Document(s ) Color of Yellow Normal (applies (MEDGEN) Peritoneal to non-numeric [facility] dialysis fluid results) [facility] Appearance of Cloudy Abnormal (MEDGEN) Abdomen (applies to [facility] non-numeric [facility] results) [facility] GLUCOSE,QL Negative Normal (applies (MEDGEN) to non-numeric [facility] results) [facility] Ketones Negative Normal (applies (MEDGEN) [Presence] in to non-numeric [facility] Blood by Tablet results) [facility] BILIRUBIN,URINE Negative Normal (applies (MEDGEN) to non-numeric [facility] results) [facility] Specific 1.020 Normal (applies (MEDGEN) gravity of to non-numeric [facility] Pericardial results) [facility] fluid by [facility] Blood Abnormal (MEDGEN) [Presence] in (applies to [facility] Urine by Visual non-numeric [facility] results) [facility] PROTEIN,TOTAL,Q Abnormal (MEDGEN) L (applies to [facility] non-numeric [facility] results) [facility] pH of Lower 5.5 Normal (applies (MEDGEN) respiratory to non-numeric [facility] specimen results) [facility] Nitrite Negative Normal (applies (MEDGEN) [Presence] in to non-numeric [facility] Urine by Test results) [facility] strip [facility] Leukocyte Negative Normal (applies (MEDGEN) esterase to non-numeric [facility] [Presence] in results) [facility] Body fluid by [facility]rology Automated test [facility] strip WBC 0-5 Normal (applies (MEDGEN) to non-numeric [facility] results) [facility] SQUAMOUS 20-27 Above high (MEDGEN) EPITHELIAL normal [facility] CELLS [facility] Bacteria Moderate(2 Above high (MEDGEN) [Presence] in 6-50) normal [facility] Prostatic fluid [facility] by Light [facility] microscopy [facility] RBC 21-40 Above high (MEDGEN) normal [facility] Hyaline casts None Seen Normal (applies (MEDGEN) [#/area] in to non-numeric [facility] Urine sediment results) [facility] by Automated [facility] count [facility] ID Date Data Source [id number] 03/04/2017 12:00:00 AM EDT (MEDGEN) [facility] Name Value Range Interpretation Description Data Source(s ) Supporting Code Document(s ) HIV Nonreactive Normal (applies to (MEDGEN) AG/AB, non-numeric [facility] 4TH GEN results) [facility] ID Date Data Source [id number] 03/04/2017 12:00:00 AM EDT (MEDGEN) [facility] Name Value Range Interpretation Description Data Source(s ) Supporting Code Document(s ) HEPATITIS C Non Normal (applies (MEDGEN) AB Reactive to non-numeric [facility] results) [facility] HCV RATIO 0.02 Ratio Normal (applies (MEDGEN) to non-numeric [facility] results) [facility] ID Date Data Source [id number] 03/04/2017 12:00:00 AM EDT (MEDGEN) [facility] Name Value Range Interpretation Description Data Source(s ) Supporting Code Document(s ) HB S AG Non Reactive Normal (applies to (MEDGEN) non-numeric [facility] results) [facility] ID Date Data Source [id number] 12/24/2016 12:00:00 AM EDT (MEDGEN) [facility] Name Value Range Interpretation Description Data Source(s ) Supporting Code Document(s ) HIV Nonreactive Normal (applies to (MEDGEN) AG/AB, non-numeric [facility] 4TH GEN results) [facility] ID Date Data Source [id number] 12/24/2016 12:00:00 AM EDT (MEDGEN) [facility] Name Value Range Interpretation Description Data Source(s ) Supporting Code Document(s ) HCV RATIO 0.02 Ratio Normal (applies (MEDGEN) to non-numeric [facility] results) [facility] HEPATITIS C Non Normal (applies (MEDGEN) AB Reactive to non-numeric [facility] results) [facility] ID Date Data Source [id number] 12/24/2016 12:00:00 AM EDT (MEDGEN) [facility] Name Value Range Interpretation Description Data Source(s ) Supporting Code Document(s ) HEP B 954 mIU/mL Normal (applies to (MEDGEN) SURF AB non-numeric [facility] IMMUNITY, results) [facility] ID Date Data Source [id number] 10/15/2016 12:00:00 AM EDT (MEDGEN) [facility] Name Value Range Interpretation Code Description Data Shantell rce(s) Supporting Document(s ) TSH 2.60 mIU/L Normal (applies to (MEDGEN) non-numeric [facility] results) [facility] ID Date Data Source [id number] 10/15/2016 12:00:00 AM EDT (MEDGEN) [facility] Name Value Range Interpretation Description Data Sup porting Code Source(s) Document(s ) CHOLESTEROL,TOTA 265 Above high normal (MEDG EN) L mg/dL [facility] HDL CHOLESTEROL 61 mg/dL Normal (applies (MEDGEN) to non-numeric [facility] results) [facility] CHOLESTEROL/HDL 4.3 Normal (applies (MEDGEN) RATIO to non-numeric [facility] results) [facility] LDL CHOL, 170 Above high normal (MEDGEN) CALCULATED mg/dL [facility] TRIGLYCERIDES 168 Above high normal (MEDGEN) mg/dL [facility] NON HDL 204 Above high normal (MEDGEN) CHOLESTEROL mg/dL [facility] ID Date Data Source [id number] 10/15/2016 12:00:00 AM EDT (MEDGEN) [facility] Name Value Range Interpretation Description Data Source(s ) Supporting Code Document(s ) Glucose 84 mg/dL Normal (applies (MEDGEN) [Mass/volume] to non-numeric [facility] in Urine results) [facility] collected for [facility] unspecified [facility] duration Sodium 143 Normal (applies (MEDGEN) [Moles/volume] mmol/L to non-numeric [facility] in Serum, results) [facility] Plasma or Blood [facility] Potassium 4.5 Normal (applies (MEDGEN) [Mass/volume] mmol/L to non-numeric [facility] in Blood results) [facility] Chloride 105 Normal (applies (MEDGEN) [Moles/volume] mmol/L to non-numeric [facility] in Serum, results) [facility] Plasma or Blood [facility] Carbon dioxide 22 Normal (applies (MEDGEN) [VFr/PPres] in mmol/L to non-numeric [facility] Gas delivery results) [facility] Creatinine 0.90 Normal (applies (MEDGEN) [Interpretation mg/dL to non-numeric [facility] ] in Urine results) [facility] Urea nitrogen 19 mg/dL Normal (applies (MEDGEN) [Moles/volume] to non-numeric [facility] in Blood results) [facility] Calcium 9.4 Normal (applies (MEDGEN) [Moles/volume] mg/dL to non-numeric [facility] in Urine results) [facility] duration BUN/CREATININE NOTE Normal (applies (MEDGEN) RATIO to non-numeric [facility] results) [facility] PROTEIN, TOTAL 7.2 g/dL Normal (applies (MEDGEN) to non-numeric [facility] results) [facility] Microalbumin 3.9 g/dL Normal (applies (MEDGEN) [Mass/time] in to non-numeric [facility] Urine collected results) [facility] for unspecified Nephrology duration PLL ALBUMIN/GLOBULI 1.2 Normal (applies (MEDGEN) N RATIO (calc) to non-numeric [facility] results) [facility] Globulin 3.3 g/dL Normal (applies (MEDGEN) [Mass/time] in (calc) to non-numeric [facility] 24 hour Urine results) [facility] BILIRUBIN,TOTAL 0.1 Below low normal (MEDGEN ) mg/dL [facility] Alkaline 58 U/L Normal (applies (MEDGEN) phosphatase to non-numeric [facility] [Enzymatic results) [facility] activity/volume [facility]phrology ] in Serum, PLLC Plasma or Blood ALT 12 U/L Normal (applies (MEDGEN) to non-numeric [facility] results) [facility] AST 14 U/L Normal (applies (MEDGEN) to non-numeric [facility] results) [facility] EGFR NON AFR 76 Normal (applies (MEDGEN) HAITIAN mL/min/1 to non-numeric [facility] .73m2 results) [facility] EGFR 88 Normal (applies (MEDGEN) HAITIAN mL/min/1 to non-numeric [facility] .73m2 results) [facility] ID Date Data Source [id number] 10/02/2016 12:00:00 AM EDT (MEDGEN) [facility] Name Value Range Interpretation Description Data Source(s ) Supporting Code Document(s ) HCV RATIO 0.03 Ratio Normal (applies (MEDGEN) to non-numeric [facility] results) [facility] HEPATITIS C Non Normal (applies (MEDGEN) AB Reactive to non-numeric [facility] results) [facility] ID Date Data Source [id number] 10/02/2016 12:00:00 AM EDT (MEDGEN) [facility] Name Value Range Interpretation Description Data Source(s ) Supporting Code Document(s ) HEP B 835 mIU/mL Normal (applies to (MEDGEN) SURF AB non-numeric [facility] IMMUNITY, results) [facility] ID Date Data Source [id number] 10/02/2016 12:00:00 AM EDT (MEDGEN) [facility] Name Value Range Interpretation Description Data Source(s ) Supporting Code Document(s ) HB CORE Non Reactive Normal (applies to (MEDGEN) AB,TOTAL non-numeric [facility] results) [facility] ID Date Data Source [id number] 10/02/2016 12:00:00 AM EDT (MEDGEN) [facility] Name Value Range Interpretation Description Data Source(s ) Supporting Code Document(s ) HB S AG Non Reactive Normal (applies to (MEDGEN) non-numeric [facility] results) [facility] Procedure Social History Code Duration Value Status Description Data Source(s ) Smoking 03/14/2020 cocaine use completed cocaine use (MEDGEN) [facility] 12:00:00 AM EDT [facility] Smoking 03/14/2020 Unknown if ever completed Unknown if ever (MED GEN) [facility] 12:00:00 AM EDT smoked smoked [facility] Smoking 08/15/2019 Daily Smoker completed Daily Smoker [facility] 09:14:00 AM EST [facility] C enter Smoking 08/15/2019 Daily Smoker completed Daily Smoker [facility] 09:02:00 AM EST Medical C enter Smoking 08/15/2019 Daily Smoker completed Daily Smoker [facility] 08:50:00 AM EST Medical C enter Smoking 10/20/2018 Daily Smoker completed Daily Smoker [facility] 09:19:00 AM EDT Medical C enter Smoking 10/20/2018 Daily Smoker completed Daily Smoker [facility] 08:54:00 AM EDT Medical C enter Smoking 10/20/2018 Daily Smoker completed Daily Smoker [facility] 08:51:00 AM EDT Medical C enter Smoking 10/20/2018 Daily Smoker completed Daily Smoker [facility] 08:48:00 AM EDT Medical C enter Smoking 07/16/2018 Daily Smoker completed Daily Smoker [facility] 08:14:00 AM EST Medical C enter Smoking 07/16/2018 Denies Ever completed Denies Ever Smoked [facility] 07:38:00 AM EST Smoked Medical C enter Smoking Unknown if ever completed Unknown if ever Tomeka Whittington smoked smoked [facility] Vital Signs ID Date Data Source UNK Name Value Range Interpretation Code Description Data Source(s) Diastolic blood 81 mm[Hg] 81 mm[Hg] (MEDGEN) [facility] pressure [facility] Systolic blood 129 mm[Hg] 129 mm[Hg] (MEDGEN) outher pressure [facility] Body temperature 37.628023 37.483877 [facility] Respiratory rate 18 /min 18 /min [facility] Oxygen saturation 95 % 95 % [facility] by Pulse oximetry Heart rate 78 /min 78 /min [facility] Diastolic blood 88 mm[Hg] 88 mm[Hg] [facility] Systolic blood 136 mm[Hg] 136 mm[Hg] [facility] Body temperature 36.227984 36.434239 [facility] Respiratory rate 22 /min 22 /min [facility] Oxygen saturation 97 % 97 % [facility] by Pulse oximetry Heart rate 88 /min 88 /min [facility] Diastolic blood 102 mm[Hg] 102 mm[Hg] [facility] Systolic blood 149 mm[Hg] 149 mm[Hg] [facility] Body weight 63.061742 63.745041 kg [facility] Measured kg Medical Center Body temperature 36.760954 36.216965 [facility] Respiratory rate 19 /min 19 /min [facility] Oxygen saturation 97 % 97 % [facility] in Arterial blood [facility] Center by Pulse oximetry Heart rate 98 /min 98 /min [facility] Body height 157.390929 157.737361 cm [facility] Center Diastolic blood 91 mm[Hg] 91 mm[Hg] [facility] pressure Medical Center Systolic blood 150 mm[Hg] 150 mm[Hg] [facility] Body mass index 25.6 kg/m2 25.6 kg/m2 [facility] (BMI) [Ratio] Medical [facility] ter Body temperature 36.732828 36.171564 [facility] Respiratory rate 18 /min 18 /min [facility] Oxygen saturation 98 % 98 % [facility] blood [facility] by Pulse oximetry Heart rate 80 /min 80 /min [facility] Diastolic blood 69 mm[Hg] 69 mm[Hg] [facility] Systolic blood 144 mm[Hg] 144 mm[Hg] [facility] Body temperature 36.000091 36.354501 [facility] Respiratory rate 18 /min 18 /min [facility] Oxygen saturation 98 % 98 % [facility] blood [facility] by Pulse oximetry Heart rate 80 /min 80 /min [facility] Diastolic blood 91 mm[Hg] 91 mm[Hg] [facility] Center Systolic blood 161 mm[Hg] 161 mm[Hg] [facility] Body temperature 36.719586 36.353084 [facility] Respiratory rate 18 /min 18 /min [facility] Oxygen saturation 98 % 98 % [facility] blood [facility] by Pulse oximetry Heart rate 80 /min 80 /min [facility] Diastolic blood 80 mm[Hg] 80 mm[Hg] [facility] Systolic blood 145 mm[Hg] 145 mm[Hg] [facility] Body temperature 36.792480 36.010379 [facility] Respiratory rate 18 /min 18 /min [facility] Oxygen saturation 98 % 98 % [facility] o[facility]phs in Arterial blood [facility] by Pulse oximetry Heart rate 82 /min 82 /min [facility] Diastolic blood 101 mm[Hg] 101 mm[Hg] [facility] pressure [facility] Systolic blood 165 mm[Hg] 165 mm[Hg] [facility] pressure [facility] Heart rate 88 /min 88 /min [facility] Body weight 63.466244 63.691393 kg [facility] hs Measured kg Medical Center Body temperature 36.743586 36.350354 [facility] Respiratory rate 16 /min 16 /min [facility] Oxygen saturation 97 % 97 % [facility] osephs in Arterial blood [facility] Center by Pulse oximetry Body height 157.190018 157.493771 cm [facility] Diastolic blood 90 mm[Hg] 90 mm[Hg] [facility] pressure [facility] Systolic blood 145 mm[Hg] 145 mm[Hg] [facility] Body mass index 25.4 kg/m2 25.4 kg/m2 [facility] (BMI) [Ratio] Medical [facility] [facility] Patient Treatment Plan of Care Planned Activity Planned Date Details Description Data Source (s) Cyclobenzaprine hydrochloride [facility] 10 MG Oral Tablet [place] Naproxen 500 MG Oral Tablet [facility] Prednisone 20 MG Oral Tablet [facility] Diazepam 5 MG Oral Tablet [facility] Naproxen 500 MG Oral Tablet [facility] methylPREDNISolone 4 mg [facility] tablets,dose pack, Ordered By: RATNA Robisonirections: 1 tablet oral daily Lorazepam 1 MG Oral Tablet [facility]
[2020-03-20 14:23] VITALS: TEMP 97.1
[2020-03-20 15:57] VITALS: BP 153/62; PULSE 70
--- NOTE | 2020-03-30 19:20 | PATH ---
Surgical Pathology Report Patient Name: BETTY BAEZ [facility]. Rec. #: [id number] /Age/Gender: 1970 (Age: 49) / F Account: [id number] Location: [facility] [place] SURGICAL Taken: 03/20/2020 Received: 03/20/2020 Reported: 03/30/2020 Physicians: Antonio Andrade M.D. Specimen(s) Received RENAL BIOPSY Clinical History Acute injury preceded by daily NSAID intake for a week Intraoperative Consult Diagnosis Renal biopsy: Glomeruli present. Rhea Peralta M.D, Ph.D, Final Diagnosis RENAL, BIOPSY: ELECTRON DENSE DEPOSITS. MESANGIAL, GLOBAL, 1+. FOOT PROCESS EFFACEMENT, <10%. 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 TUBULAR ATROPHY AND INTERSTITIAL FIBROSIS, MILD. SEE COMMENT. Comment: The kidney biopsy reveals focal global glomerulosclerosis (13 of 31 glomeruli from light, immunofluorescence, and electron microscopy), and mild tubular atrophy and interstitial fibrosis. Immunofluorescence microscopy reveals granular global mesangial deposits which stain 1+ for IgG and IgM, trace for C3, and 1+ for kappa and lambda. Electron microscopy shows globally distributed relatively small mesangial deposits. By light microscopy the glomeruli show mild mesangial proliferation, without evidence of endocapillary proliferation or cellular crescents. The differential diagnosis for this immune complex-mediated glomerulonephritis includes systemic autoimmune disease and infection-associated glomerulonephritis. Of note, in this patient with a history of positive ANCA serology and hematuria, the biopsy does not show evidence of glomerular crescents as would be expected with an ANCA-associated glomerulonephritis. Case sent for consultation to Dr. Alonso Hough from [place], [place] ([id number]) the diagnosis above reflects his opinion. See complete report from [place], [place] for additional details. Electronically Signed Stefani Morejon M.D. Gross Description Received in saline labeled "right renal biopsy," is a 1.4 cm in length x 0.1 cm in diameter roberts, cylindrical portion of soft tissue, consistent with a renal biopsy. An intraoperative examination is performed. The specimen is divided, placed into 10% buffered formalin, Micheal fixative, and glutaraldehyde. The specimen is sent to [facility] for further studies. KWS/03/20/2020 olivia/03/20/2020
== END 2020-03-20 16:15 | disposition home or self-care (01) ==
LOC: JRADIR 04:52
PROVIDERS: ATTEND Internal Medicine
PROC: 0TB03ZX Excision of Right Kidney, Percutaneous Approach, Diagnostic (ICD-10-PCS; principal; 2020-03-20)
DX: N23 Unspecified renal colic (principal); N05.8 Unspecified nephritic syndrome with other morphologic changes
CPT/HCPCS: 50200

== ENCOUNTER 2020-12-09 03:29 | Emergency (ER) | payer OTHER ==
[2020-12-09 03:42] VITALS: BMI 28.3
[2020-12-09 06:32] LABS: BASO % 0.7 % (0-2.0); EOS % 2.5 % (0-4.5); HEMATOCRIT 38.7 % (32.4-45.2); HEMOGLOBIN 12.8 GM/dL (10.7-15.3); LYMPH % 39.1 % (8-40); MCH 29.7 pg (25.7-33.7); MEAN CELL VOLUME 89.8 fl (80-96); MEAN PLT VOLUME 9.1 fl (7.5-11.1); MONO % 9.8 % (3.8-10.2); NEUT % 47.9 % (42.8-82.8); PLATELET COUNT 231 K/MM3 (134-434); RBC 4.31 M/mm3 (3.60-5.2); RDW 14.3 % (11.6-15.6); WHITE BLOOD COUNT 6.6 K/mm3 (4.0-10.0)
[2020-12-09 06:52] LABS: CHLORIDE 107 mmol/L (98-107); SODIUM 141 mmol/L (136-145)
[2020-12-09 06:56] LABS: ALBUMIN 3.3 g/dl (3.4-5.0); ANION GAP 10 MMOL/L (8-16); BLOOD UREA NITROGEN 18.5 mg/dL (7-18); CALCIUM 8.7 mg/dL (8.5-10.1); CO2 25 mmol/L (21-32)
[2020-12-09 06:58] LABS: GLUCOSE,RANDOM 96 mg/dL (74-106)
[2020-12-09 07:00] LABS: SGOT/AST 43 U/L (15-37); SGPT/ALT 91 U/L (13-61)
[2020-12-09 07:02] LABS: BILIRUBIN,TOTAL 0.2 mg/dL (0.2-1)
[2020-12-09 07:03] LABS: ALK PHOS 60 U/L (45-117)
[2020-12-09] MEDS ORDERED: diazePAM 2 MG TABLET PO ONE (07:38)
[2020-12-09] MEDS ORDERED: KETOROLAC TROMETHAMINE 60 MG/2 ML VIAL ONE (07:38)
[2020-12-09] MEDS ORDERED: KETOROLAC TROMETHAMINE 15 MG/ML VIAL IVPUSH ONE (07:46)
[2020-12-09] MEDS ORDERED: diazePAM 5 MG TABLET ONE (07:50)
[2020-12-09] MEDS ORDERED: KETOROLAC TROMETHAMINE 15 MG/ML VIAL ONE (07:50)
[2020-12-09 08:54] VITALS: BP 175/79; PULSE 79; TEMP 98.6
== END 2020-12-09 08:55 | disposition home or self-care (01) ==
LOC: JER 03:29
PROC: 3E0333Z Introduction of Anti-inflammatory into Peripheral Vein, Percutaneous Approach (ICD-10-PCS; principal; 2020-12-09)
DX: M25.512 Pain in left shoulder (principal)
CPT/HCPCS: 36415; 71045-TC-FY; 80053; 82550; 84484; 85025; 93005; 93010; 99284-25

== ENCOUNTER 2021-10-19 11:08 | Inpatient (IN) | payer OTHER ==
[2021-10-19 11:16] VITALS: BMI 29.2
[2021-10-19 12:53] LABS: BASO % 0.7 % (0-2.0); EOS % 0.5 % (0-4.5); HEMATOCRIT 29.4 % (32.4-45.2); HEMOGLOBIN 9.7 GM/dL (10.7-15.3); LYMPH % 37.9 % (8-40); MCH 28.7 pg (25.7-33.7); MCHC 33.2 g/dl (32.0-36.0); MEAN CELL VOLUME 86.6 fl (80-96); MEAN PLT VOLUME 9.2 fl (7.5-11.1); MONO % 11.5 % (3.8-10.2); NEUT % 49.4 % (42.8-82.8); PLATELET COUNT 244 10^3/uL (134-434); RBC 3.39 M/mm3 (3.60-5.2); RDW 14.4 % (11.6-15.6); WHITE BLOOD COUNT 4.5 K/mm3 (4.0-10.0)
[2021-10-19 13:02] LABS: CALCIUM 8.3 mg/dL (8.5-10.1)
[2021-10-19 13:03] LABS: BLOOD UREA NITROGEN 65.4 mg/dL (7-18)
[2021-10-19 13:06] LABS: CREATININE 4.3 mg/dL (0.55-1.3)
[2021-10-19 13:07] LABS: BILIRUBIN,TOTAL 0.2 mg/dL (0.2-1)
[2021-10-19 13:08] LABS: TOT PROT 7.1 g/dl (6.4-8.2)
[2021-10-19 13:11] LABS: EPI CELLS 14 /uL (0-25.1); HYALINE CASTS 1 /uL (0-3.1); URINE APPEARANCE CLEAR; URINE BACTERIA 752 /uL (0-1359); URINE BILIRUBIN NEGATIVE (NEGATIVE); URINE COLOR YELLOW; URINE GLUCOSE (UA) NEGATIVE (NEGATIVE); URINE KETONE NEGATIVE (NEGATIVE); URINE LEUK ESTERASE NEGATIVE (NEGATIVE); URINE NITRITE NEGATIVE (NEGATIVE); URINE PROTEIN 2+ (NEGATIVE); URINE UROBILINOGEN 0.2 mg/dL (0.2-1.0)
[2021-10-19 13:24] LABS: URINE WBC 85 /uL (0-25.8)
[2021-10-19] MEDS ORDERED: SODIUM CHLORIDE 0.9% 500 ML INFUS.BAG IV ONE (14:23)
[2021-10-19] MEDS ORDERED: ONDANSETRON 4 MG/2 ML VIAL IVPUSH ONE (14:23)
[2021-10-19] MEDS ORDERED: ONDANSETRON 4 MG/2 ML VIAL ONE (14:38)
[2021-10-19] MEDS ORDERED: CEFTRIAXONE 1 GM in DEXTROSE 5%-WATER - 50 ML IVPB ONE (18:00)
[2021-10-19] MEDS ORDERED: DEXTROSE 5%-WATER - 50 ML IVPB ONE (18:11)
[2021-10-19] MEDS ORDERED: cefTRIAXone SODIUM 1 GM VIAL ONE (18:11)
[2021-10-19] MEDS: SODIUM CHLORIDE 1,000 ML IV SCH (18:13)
[2021-10-19] MEDS: PANTOPRAZOLE 40 MG TABLET PO SCH (18:13)
[2021-10-20] MEDS: SODIUM CHLORIDE 1,000 ML IV SCH ×2 (04:48→22:49)
[2021-10-20] MEDS: PANTOPRAZOLE 40 MG TABLET PO SCH (09:05)
[2021-10-20 09:51] LABS: BASO % 0.6 % (0-2.0); EOS % 1.2 % (0-4.5); HEMATOCRIT 25.2 % (32.4-45.2); HEMOGLOBIN 8.4 GM/dL (10.7-15.3); LYMPH % 38.6 % (8-40); MCH 28.7 pg (25.7-33.7); MCHC 33.2 g/dl (32.0-36.0); MEAN CELL VOLUME 86.5 fl (80-96); MEAN PLT VOLUME 8.8 fl (7.5-11.1); MONO % 14.5 % (3.8-10.2); NEUT % 45.1 % (42.8-82.8); PLATELET COUNT 187 10^3/uL (134-434); RBC 2.92 M/mm3 (3.60-5.2); RDW 14.4 % (11.6-15.6); WHITE BLOOD COUNT 3.9 K/mm3 (4.0-10.0)
[2021-10-20 10:23] LABS: CALCIUM 7.4 mg/dL (8.5-10.1)
[2021-10-20 10:24] LABS: ALBUMIN 2.8 g/dl (3.4-5.0)
[2021-10-20 10:27] LABS: BILIRUBIN,TOTAL 0.2 mg/dL (0.2-1); CREATININE 3.2 mg/dL (0.55-1.3)
[2021-10-20] MEDS: ACETAMINOPHEN 1000 MG/100 ML BAG IVPB PRN (22:27)
[2021-10-21] MEDS: ACETAMINOPHEN 1000 MG/100 ML BAG IVPB PRN (06:26)
[2021-10-21] MEDS ORDERED: ACETAMINOPHEN 325 MG TABLET (FP) PO PRN (09:46)
[2021-10-21] MEDS: SODIUM CHLORIDE 1,000 ML IV SCH ×3 (10:04→18:05)
[2021-10-21] MEDS: PANTOPRAZOLE 40 MG TABLET PO SCH (10:04)
[2021-10-21 10:20] LABS: HEMATOCRIT 28.9 % (32.4-45.2); HEMOGLOBIN 9.6 GM/dL (10.7-15.3); MCH 28.3 pg (25.7-33.7); MCHC 33.2 g/dl (32.0-36.0); MEAN CELL VOLUME 85.1 fl (80-96); MEAN PLT VOLUME 8.9 fl (7.5-11.1); PLATELET COUNT 178 10^3/uL (134-434); RDW 14.7 % (11.6-15.6); WHITE BLOOD COUNT 3.5 K/mm3 (4.0-10.0)
[2021-10-21 10:42] LABS: ALBUMIN 2.6 g/dl (3.4-5.0); BLOOD UREA NITROGEN 38.6 mg/dL (7-18); CALCIUM 7.5 mg/dL (8.5-10.1)
[2021-10-21 10:45] LABS: CREATININE 2.6 mg/dL (0.55-1.3)
[2021-10-21 10:47] LABS: BILIRUBIN,TOTAL 0.7 mg/dL (0.2-1)
[2021-10-21] MEDS ORDERED: guaiFENesin 200 MG/10 ML 10 ML UNIT-DOSE CUPS PO PRN (15:22)
[2021-10-21] MEDS ORDERED: FLUTICASONE PROP 0.05% 16 GM NASAL SPRAY NS PRN (15:22)
[2021-10-21] MEDS ORDERED: ALPRAZolam 0.25 MG TABLET PO ONE (18:09)
[2021-10-21] MEDS ORDERED: ALPRAZolam 1 MG TABLET PO ONE (18:09)
[2021-10-22] MEDS: SODIUM CHLORIDE 1,000 ML IV SCH (06:05)
[2021-10-22 08:05] LABS: HEMATOCRIT 30.4 % (32.4-45.2); MCHC 32.9 g/dl (32.0-36.0); MEAN CELL VOLUME 85.1 fl (80-96); MEAN PLT VOLUME 8.8 fl (7.5-11.1); PLATELET COUNT 198 10^3/uL (134-434); RBC 3.57 M/mm3 (3.60-5.2); RDW 14.3 % (11.6-15.6); WHITE BLOOD COUNT 3.9 K/mm3 (4.0-10.0)
[2021-10-22 08:24] LABS: CALCIUM 7.7 mg/dL (8.5-10.1)
[2021-10-22 08:25] LABS: BLOOD UREA NITROGEN 33.9 mg/dL (7-18)
[2021-10-22 08:28] LABS: CREATININE 2.3 mg/dL (0.55-1.3)
[2021-10-22] MEDS: PANTOPRAZOLE 40 MG TABLET PO SCH (09:41)
[2021-10-22 11:11] VITALS: BP 143/93; PULSE 65; TEMP 98
== END 2021-10-22 10:40 | disposition home or self-care (01) | DRG 683 ==
LOC: JER 11:08 → JERBED 13:53 → J8W 15:53
PROVIDERS: ADMIT Family Medicine; ATTEND Nurse Practitioner Acute Care
DX: N17.9 Acute kidney failure, unspecified (principal); N39.0 Urinary tract infection, site not specified; M54.50 Low back pain, unspecified; F41.9 Anxiety disorder, unspecified; R07.89 Other chest pain; F19.90 Other psychoactive substance use, unspecified, uncomplicated; E78.5 Hyperlipidemia, unspecified; E66.9 Obesity, unspecified; Z68.29 Body mass index [BMI] 29.0-29.9, adult; R11.2 Nausea with vomiting, unspecified; D64.9 Anemia, unspecified; R31.0 Gross hematuria; I12.9 Hypertensive chronic kidney disease with stage 1 through stage 4 chronic kidney disease, or unspecified chronic kidney disease; N18.9 Chronic kidney disease, unspecified
CPT/HCPCS: 36415; 36430; 74176-TC; 80048; 80053; 81003; 82272; 83540; 83550; 85025; 85027; 86160; 86704; 86803; 86850; 86900; 86901; 86922; 87086; 87340; 87517; 93005; 93010; 99285-25; C9803-CS; P9058; U0003; U0005

== ENCOUNTER 2021-12-09 12:06 | Emergency (ER) | payer OTHER ==
[2021-12-09 12:51] VITALS: BP 151/84; PULSE 80; TEMP 98.2; BMI 29.2
[2021-12-09] MEDS ORDERED: ACETAMINOPHEN 500 MG TABLET (FP) PO ONE (14:23)
[2021-12-09] MEDS ORDERED: ACETAMINOPHEN 325 MG TABLET (FP) ONE (14:30)
[2021-12-09] MEDS ORDERED: LIDOCAINE HCL 2% (50ML VIAL) SQ ONE (15:19)
[2021-12-09] MEDS ORDERED: LIDOCAINE HCL 2% (20ML MULTI-DOSE VIAL) ONE (15:21)
[2021-12-09 16:09] LABS: BASO % 0.4 % (0-2.0); EOS % 1.7 % (0-4.5); HEMATOCRIT 32.6 % (32.4-45.2); HEMOGLOBIN 10.7 GM/dL (10.7-15.3); LYMPH % 26.8 % (8-40); MCH 28.3 pg (25.7-33.7); MCHC 32.7 g/dl (32.0-36.0); MEAN CELL VOLUME 86.7 fl (80-96); MEAN PLT VOLUME 9.1 fl (7.5-11.1); MONO % 9.8 % (3.8-10.2); NEUT % 61.3 % (42.8-82.8); PLATELET COUNT 284 10^3/uL (134-434); RBC 3.76 M/mm3 (3.60-5.2); WHITE BLOOD COUNT 6.2 K/mm3 (4.0-10.0)
[2021-12-09 16:23] LABS: ALBUMIN 3.6 g/dl (3.4-5.0); CALCIUM 9.1 mg/dL (8.5-10.1)
[2021-12-09 16:24] LABS: BLOOD UREA NITROGEN 39.6 mg/dL (7-18)
[2021-12-09 16:26] LABS: CREATININE 2.1 mg/dL (0.55-1.3)
[2021-12-09 16:28] LABS: BILIRUBIN,TOTAL 0.2 mg/dL (0.2-1); TOT PROT 7.9 g/dl (6.4-8.2)
== END 2021-12-09 16:50 | disposition home or self-care (01) ==
LOC: JER 12:06
PROC: 2W3DX1Z Immobilization of Left Lower Arm using Splint (ICD-10-PCS; principal; 2021-12-09)
DX: S69.92XA Unspecified injury of left wrist, hand and finger(s), initial encounter (principal); S62.609A Fracture of unspecified phalanx of unspecified finger, initial encounter for closed fracture; R55 Syncope and collapse; W18.39XA Other fall on same level, initial encounter
CPT/HCPCS: 36415; 71046-TC-FY; 73110-TC-LT-FY; 73130-TC-LT-FY; 80053; 84484; 85025; 86850; 86900; 86901; 93005; 93010; 99285-25

== ENCOUNTER 2022-09-24 05:22 | Day surgery (SDC) | payer OTHER ==
[2022-09-22 11:42] VITALS: BMI 25.7
[~2022-09-24 05:22] MED LIST: BUPIVACAINE HCL/PF 0.5% (5MG/ML) 10 ML VIAL NR ONE; ceFAZolin SODIUM 1 GM VIAL IVPB ONE
[2022-09-24] MEDS ORDERED: MIDAZOLAM HCL 2 MG/2 ML SINGLE DOSE VIAL ONE ×2 (07:16→07:42)
[2022-09-24] MEDS ORDERED: PROPOFOL 40 ML ONE (07:17)
[2022-09-24] MEDS ORDERED: LIDOCAINE HCL/PF 2% SDV 5ML VIAL ONE (07:17)
[2022-09-24] MEDS ORDERED: BUPIVACAINE HCL/PF 0.5% (5MG/ML) 10 ML VIAL ONE (07:20)
[2022-09-24] MEDS ORDERED: ROPIVACAINE HCL 0.5% 30ML VIAL ONE (07:41)
[2022-09-24] MEDS ORDERED: DEXAMETHASONE SOD PHOSPHATE 10 MG/1 ML VIAL ONE (07:41)
[2022-09-24] MEDS ORDERED: ceFAZolin SODIUM 1 GM VIAL IVPB ONE (08:38)
[2022-09-24] MEDS ORDERED: ONDANSETRON 4 MG/2 ML VIAL ONE (08:48)
[2022-09-24] MEDS ORDERED: BUPIVACAINE HCL/PF 0.5% (5MG/ML) 10 ML VIAL NR ONE (09:10)
[2022-09-24] MEDS ORDERED: ONDANSETRON 4 MG/2 ML VIAL IVPUSH PRN (10:02)
[2022-09-24] MEDS ORDERED: PROMETHAZINE HCL 25 MG/1 ML VIAL IVPB PRN (10:02)
[2022-09-24] MEDS ORDERED: LACTATED RINGERS SOLUTION 1,000 ML IV SCH (10:15)
[2022-09-24 12:12] VITALS: RESP 16
[2022-09-24 12:15] VITALS: BP 151/83; PULSE 89; TEMP 97.3
== END 2022-09-24 12:10 | disposition home or self-care (01) ==
LOC: JASU-SURG 05:22
PROVIDERS: ATTEND Orthopaedic Surgery
PROC: 0RNK4ZZ Release Left Shoulder Joint, Percutaneous Endoscopic Approach (ICD-10-PCS; principal; 2022-09-24 08:00)
PROC: 0LM24ZZ Reattachment of Left Shoulder Tendon, Percutaneous Endoscopic Approach (ICD-10-PCS; 2022-09-24 08:00)
DX: M75.102 Unspecified rotator cuff tear or rupture of left shoulder, not specified as traumatic (principal)
CPT/HCPCS: 82962; 94760; C1713; J1100

== ENCOUNTER 2023-02-24 15:11 | Emergency (ER) | payer OTHER ==
[2023-02-24 15:19] VITALS: BP 120/71; PULSE 88; RESP 18; TEMP 97.8; BMI 25.2
[2023-02-24] MEDS ORDERED: FAMOTIDINE 20 MG/50 ML IVPB 20 MG/50 ML MG IVPB ONE ×2 (16:18→16:27)
[2023-02-24] MEDS ORDERED: SODIUM CHLORIDE 0.9% 500 ML INFUS.BAG IV ONE (16:18)
[2023-02-24] MEDS ORDERED: ONDANSETRON 4 MG/2 ML VIAL IVPUSH ONE (16:18)
[2023-02-24] MEDS ORDERED: ACETAMINOPHEN 1000 MG/100 ML BAG IVPB ONE (16:20)
[2023-02-24] MEDS ORDERED: ACETAMINOPHEN INJECTION 100 ML IVPB ONE (16:27)
[2023-02-24] MEDS ORDERED: ONDANSETRON 4 MG/2 ML VIAL ONE (16:27)
[2023-02-24 16:48] LABS: BASO % 0.8 % (0-2.0); EOS % 2.4 % (0-4.5); HEMATOCRIT 32.3 % (32.4-45.2); HEMOGLOBIN 10.4 GM/dL (10.7-15.3); LYMPH % 35.2 % (8-40); MCHC 32.1 g/dl (32.0-36.0); MEAN CELL VOLUME 84.2 fl (80-96); MEAN PLT VOLUME 8.7 fl (7.5-11.1); MONO % 11.4 % (3.8-10.2); NEUT % 50.2 % (42.8-82.8); PLATELET COUNT 290 10^3/uL (134-434); RBC 3.84 M/mm3 (3.60-5.2); RDW 14.4 % (11.6-15.6); WHITE BLOOD COUNT 5.7 K/mm3 (4.0-10.0)
[2023-02-24 16:58] LABS: EPI CELLS 34 /uL (0-25.1); HYALINE CASTS 2 /uL (0-3.1); PH,URINE 6.5 (5.0-8.0); URINE APPEARANCE CLEAR; URINE BACTERIA 432 /uL (0-1359); URINE BILIRUBIN NEGATIVE (NEGATIVE); URINE COLOR YELLOW; URINE GLUCOSE (UA) NEGATIVE (NEGATIVE); URINE KETONE NEGATIVE (NEGATIVE); URINE LEUK ESTERASE NEGATIVE (NEGATIVE); URINE NITRITE NEGATIVE (NEGATIVE); URINE PROTEIN 3+ (NEGATIVE); URINE UROBILINOGEN 0.2 mg/dL (0.2-1.0); URINE WBC 38 /uL (0-25.8)
[2023-02-24 17:08] LABS: URINE RBC 632 /uL (0-23.9)
[2023-02-24 17:08] LABS: CALCIUM 8.7 mg/dL (8.5-10.1)
[2023-02-24 17:09] LABS: ALBUMIN 3.2 g/dl (3.4-5.0); BLOOD UREA NITROGEN 42.9 mg/dL (7-18); MAGNESIUM 1.9 mg/dL (1.8-2.4)
[2023-02-24 17:11] LABS: PHOSPHOROUS 4.9 mg/dL (2.5-4.9)
[2023-02-24 17:12] LABS: CREATININE 2.4 mg/dL (0.55-1.3)
[2023-02-24 17:13] LABS: BILIRUBIN,TOTAL 0.2 mg/dL (0.2-1)
== END 2023-02-24 18:11 | disposition home or self-care (01) ==
LOC: JER 15:11
PROC: 3E033GC Introduction of Other Therapeutic Substance into Peripheral Vein, Percutaneous Approach (ICD-10-PCS; principal; 2023-02-24)
PROC: 3E033NZ Introduction of Analgesics, Hypnotics, Sedatives into Peripheral Vein, Percutaneous Approach (ICD-10-PCS; 2023-02-24)
PROC: 3E033GC Introduction of Other Therapeutic Substance into Peripheral Vein, Percutaneous Approach (ICD-10-PCS; 2023-02-24)
DX: R11.2 Nausea with vomiting, unspecified (principal); K29.70 Gastritis, unspecified, without bleeding
CPT/HCPCS: 36415; 71045-TC-FY; 80053; 81003; 83690; 83735; 84100; 84484; 85025; 87086; 93005; 93010; 99285-25